=== PATIENT | female | born 1985 | race Caucasian/White ===

== ENCOUNTER 2017-03-02 20:11 | Emergency (ER) | payer SELFPAY ==
[2017-03-02] MEDS ORDERED: NEOMY SULF/POLYMYX B SULF/HC 100 DROP BTL RIGHT EAR ONE (20:31)
[2017-03-02] MEDS ORDERED: NEOMY SULF/POLYMYX B SULF/HC 100 DROP BTL ONE (20:40)
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
[2017-03-02 20:54] VITALS: BP 124/83
== END 2017-03-02 20:45 | disposition home or self-care (01) ==
LOC: ER 20:11
DX: H60.391 Other infective otitis externa, right ear (principal); Z72.0 Tobacco use